=== PATIENT | female | born 1950 | race Caucasian/White ===

== ENCOUNTER 2016-05-22 16:48 | Emergency (ER) | payer OTHER ==
[2016-05-22 17:07] VITALS: O2SAT 93
--- NOTE | 2016-05-22 17:31 | EDPHY ---
H & P Stated Complaint: R knee injury sledding - Personal History Current Tetanus/Diphtheria Vaccine: Yes Current Tetanus Diphtheria and Acellular Pertussis (TDAP): Yes - Medical/Surgical History Hx Asthma: No Hx Chronic Respiratory Disease: No Hx Diabetes: No Hx Cardiac Disease: No Hx Renal Disease: No Hx Cirrhosis: No Hx Alcoholism: No Hx HIV/AIDS: No Hx Splenectomy or Spleen Trauma: No Other PMH: R hip replacement Aug 2015 - Social History Smoking Status: Former smoker HPI/ROS: Chief complaint: Left knee injury History of present illness: This is a 66-year-old female who was sledding with her granddaughter when she fell off the sled twisting her left knee. Since the accident she has had pain in the knee. Worse with movement and ambulation. Patient denies open wounds. She denies abnormal coolness or paresthesias in the leg. She denies trauma to other parts of the body. (Silvano Rebolledo) - Physical Exam Exam: General: Alert, nontoxic Skin: No lesions consistent with trauma to the left leg Musculoskeletal: Left knee is mildly tender to the lateral aspect of it including over the lateral collateral and lateral joint line. She can flex and extended. The knee joint appears stable. Vascular: DP and PT pulses 2+. Neurologic: Sensation intact in the left leg (Silvano Rebolledo) Constitutional: Initial Vital Signs Temperature (C) 36.9 C 05/22/16 17:05 Heart Rate 64 05/22/16 17:05 Respiratory Rate 17 05/22/16 17:05 Blood Pressure 123/74 H 05/22/16 17:05 O2 Sat (%) 93 05/22/16 17:05 O2 Delivery Mode Room Air Allergies/Adverse Reactions: acetaminophen [From Vicodin] Allergy (Verified 05/22/16 17:05) hydrocodone bitartrate [From Vicodin] Allergy (Verified 05/22/16 17:05) Home Medications: Medication Instructions Recorded Calcium Carbonate/Vitamin D3 2 each PO BID 08/18/15 [Calcium 500-Vit D3 200 Tablet] Multivitamins W-Minerals [Thera M 1 each PO DAILY 08/18/15 Plus Tablet (*)] Acetaminophen [Tylenol 325mg (*)] 325 - 650 mg PO Q6 PRN #0 tab 09/10/15 Aspirin EC [Aspirin EC 325 mg (*)] 325 mg PO DAILY #0 tab 09/10/15 Docusate Sodium [Colace 100 MG (*)] 100 mg PO BID #0 cap 09/10/15 celeCOXIB [Celebrex (*)] 200 mg PO DAILY #20 cap 09/10/15 oxyCODONE IR [Oxycodone Ir (*)] 5 - 10 mg PO Q4 PRN #30 tab 09/10/15 Medical Decision Making - Diagnostics Imaging: X-ray series of the left knee is negative for acute findings (Silvano Rebolledo) Procedures: Procedure: Splint placement. A knee immobilizing splint was applied. After application of the splint I returned and re-examined the patient. The splint was adequately immobilizing the joint and distal to the splint the patient's circulation and sensation was intact. Patient was given crutches (Silvano Rebolledo) ED Course/Re-evaluation: Patient seen under the supervision of my secondary supervising physician Dr. Suresh Roche. Patient presents to the emergency department for a left knee injury. The leg is neurovascularly intact. X-rays negative. However she has significant lateral discomfort. She is placed in a knee immobilizer and given crutches to allow for rest. She is referred to Orthopedics for continued evaluation and care. Return precautions are given. Patient voiced understanding and agreement with plan. (Silvano Rebolledo) Departure - Departure Disposition: Home, Routine, Self-Care Clinical Impression: Knee sprain Qualifiers: Encounter type: initial encounter Involved ligament of knee: unspecified ligament Laterality: left Qualifier Code: (S83.92XA) Sprain of unspecified site of left knee, initial encounter Condition: Good Instructions: Knee Sprain (ED) Additional Instructions: Follow-up with Orthopedics next week for recheck Use [id number] ibuprofen as directed as needed for pain Ice the injury, 20 minutes on, 3 times daily for the next 3 days If symptoms worsen or new symptoms develop return to the emergency department for recheck Referrals: Jocelin Villarreal MD [Primary Care Provider] - As per Instructions Hugh Cowan MD [Medical Doctor] - As per Instructions
--- NOTE | 2016-05-22 18:39 | DX ---
Left knee series 5 views. History: Pain following trauma. Sledding injury with pain laterally. Findings: Osseous structures are intact without fracture. The knee joint space is normal. No osteophy angel are seen. No intra-articular calcifications are evident. There is no effusion. On the merchant vi ew obtained there is no subluxation of the patella or fracture. Impression: Normal left knee series.
[2016-05-22 19:15] VITALS: BP 114/66; PULSE 75; RESP 16; TEMP 98.2
== END 2016-05-22 19:14 | disposition home or self-care (01) ==
DX: S83.92XA Sprain of unspecified site of left knee, initial encounter (principal); Z87.891 Personal history of nicotine dependence; V00.221A Fall from sled, initial encounter; Y99.8 Other external cause status; Y93.23 Activity, snow (alpine) (downhill) skiing, snowboarding, sledding, tobogganing and snow tubing

== ENCOUNTER → 2017-10-21 | Outpatient (CLI) | payer OTHER | LOC: FIMAGING 09:11 | PROVIDERS: ATTEND Family Medicine | DX: R10.11 Right upper quadrant pain (principal) ==